=== PATIENT | female | born 1950 | race Caucasian/White ===

== ENCOUNTER 2018-06-14 06:46 | Day surgery (SDC) | payer MEDICARE ==
[~2018-06-14] VITALS: Ht 160 cm; Wt 90.7 kg
[2018-06-14] MEDS ORDERED: PRAVASTATIN10 MG PO (07:12)
[2018-06-14] MEDS ORDERED: ATENOLOL25 MG PO (07:12)
[2018-06-14] MEDS ORDERED: LISINOPRIL20 MG PO (07:13)
[2018-06-14] MEDS ORDERED: HYDROCHLOROT25 MG PO (07:13)
[2018-06-14] MEDS ORDERED: RANITIDINE150 M1 PO (07:13)
[2018-06-14] MEDS ORDERED: CITALOPRAM40 MG PO (07:14)
[2018-06-14] MEDS ORDERED: ST JOSEPH LOW D81 MG (07:15)
[2018-06-14 10:14] VITALS: BP 111/59
== END 2018-06-14 10:31 | disposition home or self-care (01) ==
LOC: ENDO 06:46 → ORM 08:00 → ENDO 10:31 → ORM 11:05
PROVIDERS: ATTEND Internal Medicine Gastroenterology
PROC: 0DBP8ZX Excision of Rectum, Via Natural or Artificial Opening Endoscopic, Diagnostic (ICD-10-PCS; principal; 2018-06-14)
PROC: 0DBE8ZX Excision of Large Intestine, Via Natural or Artificial Opening Endoscopic, Diagnostic (ICD-10-PCS; 2018-06-14)
DX: R19.7 Diarrhea, unspecified (principal); D12.9 Benign neoplasm of anus and anal canal; Q43.8 Other specified congenital malformations of intestine; K64.4 Residual hemorrhoidal skin tags; K64.8 Other hemorrhoids; K21.9 Gastro-esophageal reflux disease without esophagitis; I10 Essential (primary) hypertension; E78.00 Pure hypercholesterolemia, unspecified; F32.9 Major depressive disorder, single episode, unspecified; Z86.73 Personal history of transient ischemic attack (TIA), and cerebral infarction without residual deficits